=== PATIENT | male | born 2005 | race Caucasian/White ===

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

== ENCOUNTER 2025-01-17 01:47 | Emergency (ER) | payer SELFPAY ==
[~2025-01-17] VITALS: Ht 193 cm; Wt 81.6 kg
[2025-01-17 02:13] VITALS: BP 111/61
[2025-01-17] MEDS ORDERED: Lidocaine Hydrochloride 5 ML AMP SC ONE (03:10)
[2025-01-17] MEDS ORDERED: Bacitracin Zinc 14 GM TUBE T ONE (04:15)
== END 2025-01-17 05:18 | disposition home or self-care (01) ==
LOC: ED 01:47
DX: S61.212A Laceration without foreign body of right middle finger without damage to nail, initial encounter (principal); S61.411A Laceration without foreign body of right hand, initial encounter; S60.221A Contusion of right hand, initial encounter; Z91.030 Bee allergy status; W22.01XA Walked into wall, initial encounter; Y93.89 Activity, other specified; Y92.89 Other specified places as the place of occurrence of the external cause; Y99.8 Other external cause status